=== PATIENT | female | born 1975 | race Two or more races ===

== ENCOUNTER 2021-04-24 12:08 | Emergency (ER) | payer MEDICAID ==
[~2021-04-24] VITALS: Ht 157.5 cm; Wt 65.8 kg
[2021-04-24] MEDS ORDERED: IV NORMAL SALINE 1000 ML BAG IV ONE (12:15)
[2021-04-24] MEDS ORDERED: METOCLOPRAMIDE HCL 10 MG/2 ML VIAL IV ONE (12:30)
[2021-04-24 12:32] LABS: HEMATOCRIT 42.9 % (31.2-41.9); MEAN CORPUSCULAR HEMOGLOBIN 27.6 uug (24.7-32.8); MEAN CORPUSCULAR VOLUME 82.3 fL (75.5-95.3); PLATELET COUNT (AUTO) 336 K/uL (179-408)
[2021-04-24 12:33] LABS: *URINE HCG, QUAL NEG (NEGATIVE)
[2021-04-24 12:38] LABS: CREATININE 0.9 mg/dL (0.6-1.3); POTASSIUM 3.6 mmol/L (3.5-5.1)
[2021-04-24 12:49] LABS: BILIRUBIN,DIRECT 0.1 mg/dL (0.0-0.2); BILIRUBIN,TOTAL 0.5 mg/dL (0.2-1.0); TOTAL PROTEIN, SERUM 8.2 g/dL (6.4-8.2)
[2021-04-24] MEDS ORDERED: METOCLOPRAMIDE HCL 10 MG/2 ML VIAL ONE (12:51)
[2021-04-24 12:52] LABS: *BILIRUBIN,URIN NEGATIVE (NEGATIVE); *BLOOD, URINE 2+ (NEGATIVE); *CLARITY,URINE CLEAR (CLEAR); *COLOR,URINE YELLOW (YELLOW); *KETONES,URINE NEGATIVE (NEGATIVE); *UROBILINOGEN,URINE 0.2 E.U./dl (NORMAL); LEUKOCYTE ESTERASE ,URINE TRACE (NEGATIVE); NITRITE, URINE NEGATIVE (NEGATIVE); UGLUCOSE NEGATIVE (NEGATIVE)
--- NOTE | 2021-04-24 13:11 | NUR ---
Pt is resting and talking on her cellphone. NAD monitored accordingly bed at lowest position with IV intact to L ac G20, infusing well, no sxs of phlebitis nor infiltration
[2021-04-24] MEDS ORDERED: ACETAMINOPHEN 325 MG TABLET PO ONE (13:45)
[2021-04-24] MEDS ORDERED: LORAZEPAM 2 MG/1 ML VIAL IV ONE (13:45)
[2021-04-24] MEDS ORDERED: ACETAMINOPHEN 325 MG TABLET ONE (13:57)
[2021-04-24] MEDS ORDERED: LORAZEPAM 2 MG/1 ML VIAL ONE (13:57)
--- NOTE | 2021-04-24 15:19 | NUR ---
ambulatory with antalgic gait to R lower extremity. wearing shoes able to use the restroom independently kept safe, and comfortable monitored accordingly pending disposition
[2021-04-24] MEDS ORDERED: IV NORMAL SALINE 250 ML IV ONE (15:53)
[2021-04-24] MEDS ORDERED: IOHEXOL 350 100 ML INFUS..BTL ONE (15:53)
[2021-04-24] MEDS ORDERED: SWABABLE VALVE TRANSFER SET EA MC ONE (15:53)
[2021-04-24 16:21] LABS: BACTERIA,URINE FEW /HPF (NONE SEEN); SQUAMOUS EPITHELIAL CELL,UR FEW /HPF (NONE SEEN); WBC,URINE 0-3 /HPF (0-3)
--- NOTE | 2021-04-24 17:32 | NUR ---
Patient discharged to home in stable condition. Written and verbal after care instructions given. Patient verbalizes understanding of instructions. Stressed follow up or return to ER for worsening s/s.
[2021-04-24] MEDS ORDERED: LORA-259 PO (17:35)
[2021-04-24 17:38] VITALS: BP 113/77
== END 2021-04-24 17:39 | disposition home or self-care (01) ==
LOC: ER 12:08
DX: R55 Syncope and collapse (principal); R51.9 Headache, unspecified; R00.0 Tachycardia, unspecified; D72.829 Elevated white blood cell count, unspecified; F41.9 Anxiety disorder, unspecified; R79.1 Abnormal coagulation profile; R53.83 Other fatigue; U09.9 Post COVID-19 condition, unspecified
CPT/HCPCS: 36415; 70450; 71045; 71275; 80048; 80076; 81001; 83880; 84443; 84484; 84703; 85025; 85379; 93005; 96361; 96374; 96375; 99291; J2060; J2765; Q9967; 70030-TC; A4663; J7030; J7050